=== PATIENT | female | born 1995 | race Caucasian/White ===

== ENCOUNTER 2017-05-31 14:45 | Emergency (ER) | payer OTHER ==
[2017-05-31 14:56] VITALS: BP 101/66
[2017-05-31] MEDS ORDERED: Sulfamethox/Trimethoprim DS 800/160* TAB PO ONE (16:37)
--- NOTE | 2017-05-31 16:37 | ED ---
Skin Complaint - HPI Summary HPI Summary: 22 female presents the ED with complaints of pain in left arm and left collarbone. States she gets his pain went she begins to have an infection at surgical site. 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 Had surgery on April 01 at [facility] in [place]. Was given vancomycin for 32 days. Later had pain in signs of infection and was placed on Bactrim. Had a positive MRSA culture. States 2 days ago pain returned and she is afraid that the infection is beginning again. Denies any drainage redness swelling or other signs infection. Has been applying appropriate dressings and packing as instructed by her surgeon. Denies any fever chills nausea or vomiting. Has not been on any antibiotics for the past 3 weeks. Movement of the left arm makes pain worse. Denies any other complaints or past history. She is afraid she has another MRSA infection as previous ones began with pain as well. - History of Current Complaint Chief Complaint: EDLacSutureRecheck Time Seen by Provider: 05/31/17 16:05 Stated Complaint: MRSA INFECTION FROM PRIOR SURGERY Hx Obtained From: Patient Onset/Duration: Started Days Ago, Still Present Skin Exposure Onset/Duration: Days Ago Timing: Constant Onset Severity: Mild Current Severity: Moderate Pain Intensity: 7 Pain Scale Used: 0-10 Numeric Skin Location: Discrete - Left midclavicle area Character: Pain Aggravating Symptom(s): Other: - Movement Alleviating Symptom(s): Nothing Associated Signs & Symptoms: Nausea - Allergy/Home Medications Allergies/Adverse Reactions: Allergies Allergy/AdvReac Type Severity Reaction Status Date / Time No Known Allergies Allergy Verified 05/31/17 14:56 PMH/Surg Hx/FS Hx/Imm Hx Endocrine/Hematology History: Denies: Hx Anticoagulant Therapy, Hx Diabetes Cardiovascular History: Denies: Hx Hypertension Musculoskeletal History: Reports: Other Musculoskeletal History - osteomyelitis - Surgical History Surgery Procedure, Year, and Place: April 01 osteomyelitis at [facility] - Immunization History Date of Tetanus Vaccine: up-to-date Immunizations Up to Date: Yes Infectious Disease History: Yes Infectious Disease History: Reports: Hx of Known/Suspected MRSA Denies: Traveled Outside the [place] in Last 30 Days - Family History Known Family History: Positive: None - Social History Hx Substance Use: Yes - 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 Smoking Status (MU): Unknown if Ever Smoked Review of Systems Constitutional: Negative Cardiovascular: Negative Respiratory: Negative Gastrointestinal: Negative Positive: Arthralgia, Myalgia - left arm Positive: Other - surgical site left clavicle Neurological: Negative All Other Systems Reviewed And Are Negative: Yes Physical Exam Triage Information Reviewed: Yes Vital Signs On Initial Exam: Initial Vitals Temp Pulse Resp BP Pulse Ox 97.5 F 80 16 101/66 98 05/31/17 14:50 05/31/17 14:50 05/31/17 14:50 05/31/17 14:50 05/31/17 14:50 Vital Signs Reviewed: Yes Appearance: Positive: Well-Appearing, No Pain Distress, Well-Nourished Skin: Positive: Warm, Skin Color Reflects Adequate Perfusion, Dry, Erythema @ - Minimal to mild erythema surrounding surgical site of left mid clavicle area no abscess appreciated. Gaping wound from surgical site. Gel Packing present. No obvious discharge or significant swelling. No surrounding cellulitis or red streaking. Not warm to touch. Rest of exam normal. Negative: Cold, Numb, Cyanosis @, Pale Head/Face: Positive: Normal Head/Face Inspection Neck: Positive: Supple, Nontender, No Lymphadenopathy Respiratory/Lung Sounds: Positive: Clear to Auscultation, Breath Sounds Present. Negative: Rales, Rhonchi, Wheezes Cardiovascular: Positive: Normal, RRR, Pulses are Symmetrical in both Upper and Lower Extremities. Negative: Murmur, Rub Bowel Sounds: Positive: Present Musculoskeletal: Positive: Normal, Strength/ROM Intact, Pain @ - With movement of left arm and neck per patient. Negative: Limited @, Interruption @, Abnormal @, Edema Left, Edema Right Neurological: Positive: Normal, Sensory/Motor Intact, Alert, Oriented to Person Place, Time Diagnostics - Vital Signs Vital Signs Temp Pulse Resp BP Pulse Ox 05/31/17 14:50 97.5 F 80 16 101/66 98 - Laboratory Lab Statement: Any lab studies that have been ordered have been reviewed, and results considered in the medical decision making process. Course/Dx - Course Course Of Treatment: Wound culture obtained sent to lab pending results. Due to patient's significant history will start on Bactrim. Has had palpitations with surgery. However no significant findings for infection/concern for osteomyelitis or abscess at this time. Normal vital signs. Told to call surgeon to inform of symptoms. Patient has not seen surgeon since surgery on April 01. Aware worsening signs and symptoms to watch out for. Encouraged use of hematocrit she was educated constant antibiotic use is not recommended. Increase fluid intake. Ibuprofen and Tylenol for pain. Continue dressing as per surgeon. No other concerns or complaints at this time. Follow-up with PCP for recheck. - Differential Diagnoses - Skin Complaint Differential Diagnoses: Abscess, Cellulitis, MRSA, Other - Surgical site wound, surgical site competitions - Diagnoses Provider Diagnoses: Cellulitis Discharge - Sign-Out/Discharge Documenting (check all that apply): Discharge - Discharge Plan Condition: Good Disposition: HOME Prescriptions: Sulfamethox/Trimethoprim DS* [Bactrim DS 800/160 TAB*] 1 tab PO BID #19 tab Patient Education Materials: Cellulitis (ED) Referrals: Jacques Mejía MD [Medical Doctor] - Non Staff,Doctor [Primary Care Provider] - Additional Instructions: Take prescribed medication as directed until entire dose is finished. Recommend taking probiotic pill and eating Maori yogurt in between doses has been discussed. Increase fluid intake and keep wound clean and dry as you have been. Recommend calling surgeon if any complications. Any new or worsening symptoms please seek medical attention promptly as we discussed. Ibuprofen or Tylenol for pain. - Billing Disposition and Condition Condition: GOOD Disposition: HOME
--- NOTE | 2017-06-03 06:49 | PN ---
Progress Note - Progress Note Date of Service: 06/03/17 Note: Patient's wound culture grew MRSA. Patient placed on Bactrim. Final culture shows sensitive to. No further action required.
== END 2017-05-31 16:55 | disposition home or self-care (01) ==
LOC: ED 14:45
DX: L03.114 Cellulitis of left upper limb (principal); B95.62 Methicillin resistant Staphylococcus aureus infection as the cause of diseases classified elsewhere; Z16.11 Resistance to penicillins; Z16.29 Resistance to other single specified antibiotic; R11.0 Nausea
CPT/HCPCS: 87070; 87077; 87186; 87205; 87640; 87641; 99282; A9270-GY

== ENCOUNTER 2017-06-20 11:15 | Emergency (ER) | payer OTHER ==
[2017-06-20 13:35] LABS: Urine Appearance Cloudy; Urine Blood Negative (Negative); Urine Color Yellow; Urine Ketones Negative (Negative); Urine Protein Negative (Negative); Urine Specific Gravity 1.024 (1.010-1.030); Urine Urobilinogen Positive (Negative)
[2017-06-20 14:40] LABS: EGFR Non-African American 95.2 (>60)
[2017-06-20] MEDS ORDERED: Ondansetron ODT TAB* 4 MG PO ONE (14:52)
--- NOTE | 2017-06-20 15:46 | ED ---
GI/ HPI - HPI Summary HPI Summary: 22F presents with n/v/d for past 5 days. She admits to fatigue. She denies any chest pain, SOB, or cough. She admits to sore throat. She states that she has not been able to keep food down. She admit to dizziness and a mild headache. she also has occasionally LUQ pain. no blood in stool. She denies any dysuria, urgency, frequency, hematuria. She denies any sinus congestion. She has been taking Tylenol and ibuprofen. She denies any known fevers. She states she has been able to hear liquids down but still feels a little dehydrated. She states she feels lightheaded. - History of Current Complaint Chief Complaint: EDNauseaVomitDiarrh Time Seen by Provider: 06/20/17 15:17 Stated Complaint: ILLNESS Pain Intensity: 7 - Allergy/Home Medications Allergies/Adverse Reactions: Allergies Allergy/AdvReac Type Severity Reaction Status Date / Time No Known Allergies Allergy Verified 06/20/17 11:22 Home Medications: Home Medications Amphetamine MIXED SALTS TAB* [Adderall TAB*] 20 mg PO DAILY 06/20/17 [History Confirmed 06/20/17] Buprenorphine/Naloxone SL TAB* [Suboxone 8-2 mg SL TAB*] 2 tab SL DAILY [History Confirmed 06/20/17] Magnesium CITRATE* [Citrate of Magnesia*] 150 ml PO DAILY PRN 06/20/17 [History Confirmed 06/20/17] Nicotine GUM* 2 mg PO Q2H PRN 06/20/17 [History Confirmed 06/20/17] busPIRone TAB* [Buspar TAB*] 5 mg PO TID 06/20/17 [History Confirmed 06/20/17] cloNIDine TAB* [Catapres 0.1 MG TAB*] 0.1 mg PO BID PRN 06/20/17 [History Confirmed 06/20/17] hydrOXYzine HCL TAB* [Atarax TAB 50 MG *] 100 mg PO BID 06/20/17 [History Confirmed 06/20/17] PMH/Surg Hx/FS Hx/Imm Hx Endocrine/Hematology History: Denies: Hx Anticoagulant Therapy, Hx Diabetes Cardiovascular History: Denies: Hx Hypertension Musculoskeletal History: Reports: Other Musculoskeletal History - osteomyelitis - Surgical History Surgery Procedure, Year, and Place: April 01 osteomyelitis at [facility] - Immunization History Date of Tetanus Vaccine: up-to-date Infectious Disease History: No Infectious Disease History: Reports: Hx of Known/Suspected MRSA Denies: Traveled Outside the [place] in Last 30 Days - Family History Known Family History: Positive: None - Social History Alcohol Use: None Alcohol Amount: daily, but sober since 04/30/17 Hx Substance Use: Yes - 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 Substance Use Type: Reports: Cocaine, Heroin Substance Use Comment - Amount & Last Used: sober since 04/30/2017 Smoking Status (MU): Light Every Day Tobacco Smoker Review of Systems Negative: Fever Positive: Sore Throat Negative: Chest Pain Negative: Shortness Of Breath Positive: Abdominal Pain, Vomiting, Diarrhea, Nausea All Other Systems Reviewed And Are Negative: Yes Physical Exam Triage Information Reviewed: Yes Vital Signs On Initial Exam: Initial Vitals Temp Pulse Resp BP Pulse Ox 97.3 F 92 15 126/56 99 06/20/17 11:19 06/20/17 11:19 06/20/17 11:19 06/20/17 11:19 06/20/17 11:19 Vital Signs Reviewed: Yes Appearance: Positive: Well-Appearing Skin: Positive: Warm, Dry Head/Face: Positive: Normal Head/Face Inspection Eyes: Positive: Normal, EOMI, ROULA, Conjunctiva Clear ENT: Positive: Normal ENT inspection, Pharynx normal, TMs normal Respiratory/Lung Sounds: Positive: Clear to Auscultation, Breath Sounds Present Cardiovascular: Positive: Normal, RRR Abdomen Description: Positive: Soft, Other: - mild diffuse abdominal tenderness Bowel Sounds: Positive: Present Musculoskeletal: Positive: Normal Neurological: Positive: Normal Psychiatric: Positive: Normal Diagnostics - Vital Signs Vital Signs Temp Pulse Resp BP Pulse Ox 06/20/17 15:20 83 116/53 98 06/20/17 14:32 98.0 F 85 16 104/51 100 06/20/17 12:37 97.9 F 75 16 97/53 98 06/20/17 11:19 97.3 F 92 15 126/56 99 - Laboratory Lab Results: Lab Results 06/20/17 06/20/17 Range/Units 13:15 13:51 Sodium 139 (139-145) mmol/L Potassium TNP Chloride 103 (101-111) mmol/L Carbon Dioxide 26 (22-32) mmol/L Anion Gap 10 (2-11) mmol/L BUN 9 (6-24) mg/dL Creatinine 0.76 (0.51-0.95) mg/dL Est GFR ( Amer) 122.4 (>60) Est GFR (Non-Af Amer) 95.2 (>60) BUN/Creatinine Ratio 11.8 (8-20) Glucose 86 (70-100) mg/dL Calcium 8.6 (8.6-10.3) mg/dL Total Bilirubin 0.20 (0.2-1.0) mg/dL AST TNP ALT 43 (7-52) U/L Alkaline Phosphatase 70 (34-104) U/L C-Reactive Protein Pending Total Protein 7.0 (6.4-8.9) g/dL Albumin 3.6 (3.2-5.2) g/dL Globulin 3.4 (2-4) g/dL Albumin/Globulin Ratio 1.1 (1-3) Lipase 20 (11.0-82.0) U/L Beta HCG, Quant < 0.60 mIU/mL Urine Color Yellow Urine Appearance Cloudy Urine pH 6.0 (5-9) Ur Specific Crystal 1.024 (1.010-1.030) Urine Protein Negative (Negative) Urine Ketones Negative (Negative) Urine Blood Negative (Negative) Urine Nitrate Negative (Negative) Urine Bilirubin Negative (Negative) Urine Urobilinogen Positive A (Negative) Ur Leukocyte Esterase Negative (Negative) Urine Glucose Negative (Negative) Urine Ascorbic Acid * A (Negative) Result Diagrams: 06/20/17 16:00 06/20/17 16:00 Lab Statement: Any lab studies that have been ordered have been reviewed, and results considered in the medical decision making process. Re-Evaluation - Re-Evaluation First Eval Re-Evaluation Time: 19:28 Change: Improved Comment: feeling better after fluids GIGU Course/Dx - Course Course Of Treatment: 22F presents with n/v/d for past 5 days. She admits to fatigue. She denies any chest pain, SOB, or cough. She admits to sore throat. She states that she has not been able to keep food down. She admit to dizziness and a mild headache. she also has occasionally LUQ pain. no blood in stool. She denies any dysuria, urgency, frequency, hematuria. She denies any sinus congestion. She has been taking Tylenol and ibuprofen. She denies any known fevers. She states she has been able to hear liquids down but still feels a little dehydrated. She states she feels lightheaded. On exam mild diffuse abdominal tenderness. Lungs clear to auscultation. Labs within normal limits. Gave 2 L of fluid and patient feeling better. Will discharge with nausea medication. Patient understands agrees with plan. - Diagnoses Differential Diagnoses - Female: Gastroenteritis (Viral), Gastroenteritis ( Bacterial), Urinary Tract Infection Provider Diagnoses: Gastroenteritis Discharge - Sign-Out/Discharge Documenting (check all that apply): Discharge/Admit/Transfer - Discharge Plan Condition: Good Disposition: HOME Prescriptions: Ondansetron TAB* [Zofran 4 MG Tab*] 4 mg PO Q6H PRN #18 tab PRN Reason: Nausea Patient Education Materials: Gastroenteritis (ED) Forms: *Gen. Provider Communication Referrals: Non Staff,Doctor [Primary Care Provider] - Additional Instructions: Can take Zofran every 6 hours as needed for nausea Drink small amounts of fluid as tolerated When able to eat follow BRAT diet: Bananas, rice, applesauce, toast Take ibuprofen or Tylenol for pain as needed every 6 hours Follow up with primary within 5 days Return to ED if develop fever that does not respond to Tylenol or ibuprofen, severe abdominal pain, or any new or worsening symptoms - Billing Disposition and Condition Condition: GOOD Disposition: HOME
[2017-06-20 16:13] LABS: ABS Basophils 0 10^3/ul (0-0.2); ABS Eosinophils 0.4 10^3/ul (0-0.6); ABS Lymphocytes 1.6 10^3/ul (1.0-4.8); ABS Monocytes 0.3 10^3/ul (0-0.8); ABS Neutrophils 2.9 10^3/ul (1.5-7.7); ABS Nucleated RBC 0 10^3/ul; Eosinophil % 7.7 % (0-6); Hematocrit 35 % (35-47); Hemoglobin 11.6 g/dl (12.0-16.0); Lymphocyte % 30.9 % (25-47); Mean Corpuscular HGB Conc 34 g/dl (31-36); Mean Corpuscular Hemoglobin 29 pg (27-31); Mean Corpuscular Volume 85 fL (80-97); Mean Platelet Volume 8.3 um3 (7.4-10.4); Nucleated Red Blood Cells % 0; Platelet Count 143 10^3/ul (150-450); Red Blood Count 4.06 10^6/ul (4.0-5.4); Red Cell Distribution Width 16 % (10.5-15); White Blood Count 5.3 10^3/ul (3.5-10.8)
[2017-06-20] MEDS: NS 0.9% 1000 ML* 2,000 ML IV ONE (16:29)
[2017-06-20] MEDS ORDERED: O ndansetron ODT 4MG 2TAB PRPK 4 MG PAK PO ONE (18:46)
[2017-06-20 19:18] VITALS: BP 118/54
== END 2017-06-20 19:26 | disposition home or self-care (01) ==
LOC: ED 11:15
DX: K52.9 Noninfective gastroenteritis and colitis, unspecified (principal); F17.200 Nicotine dependence, unspecified, uncomplicated
CPT/HCPCS: 36415; 80053; 81003; 83690; 84702; 85025; 86140; 86308; 96360; 96361; 99283; A9270-GY

== ENCOUNTER 2017-07-05 13:28 | Emergency (ER) | payer OTHER ==
[2017-07-05 15:18] VITALS: BP 120/67
--- NOTE | 2017-07-05 15:41 | ED ---
All Perez Gabriel, scribed for Víctor Apple MD on 07/05/17 at 1420 . Skin Complaint - HPI Summary HPI Summary: This patient is a 22 year old F presenting to [facility] with a chief complaint of lumps on her pelvic bone and in her arm pits. Pt currently has a MRSA infection on her neck from using IV drugs and is seeing the wound clinic for it. She is currently on two oral antibiotics. She is a patient at [facility]. She is concerned that her MRSA has spread, she is a chronic skin case picker. Patient reports migraines, diaphoresis, diarrhea, and general malaise. LNMP 3 months ago. - History of Current Complaint Chief Complaint: EDRashSkinAbscess Time Seen by Provider: 07/05/17 14:12 Stated Complaint: RASH Hx Obtained From: Patient Onset/Duration: Still Present Timing: Constant Onset Severity: Mild Current Severity: Mild Pain Intensity: 4 Pain Scale Used: 0-10 Numeric Skin Location: Other: - armpit Associated Signs & Symptoms: Negative - fever - Allergy/Home Medications Allergies/Adverse Reactions: Allergies Allergy/AdvReac Type Severity Reaction Status Date / Time No Known Allergies Allergy Verified 06/20/17 11:22 PMH/Surg Hx/FS Hx/Imm Hx Endocrine/Hematology History: Denies: Hx Anticoagulant Therapy, Hx Diabetes Cardiovascular History: Denies: Hx Hypertension Respiratory History: Denies: Hx Chronic Obstructive Pulmonary Disease (COPD) GI History: Denies: Hx Gastroesophageal Reflux Disease, Hx Gastrointestinal Bleed Musculoskeletal History: Reports: Other Musculoskeletal History - osteomyelitis Neurological History: Reports: Hx Migraine Psychiatric History: Reports: Hx Substance Abuse - Surgical History Surgery Procedure, Year, and Place: April 01 osteomyelitis at [facility] - Immunization History Date of Tetanus Vaccine: up-to-date Infectious Disease History: No Infectious Disease History: Reports: Hx of Known/Suspected MRSA Denies: Traveled Outside the [place] in Last 30 Days - Family History Known Family History: Negative: Respiratory Disease, Seizure Disorder - Social History Alcohol Use: None Alcohol Amount: daily, but sober since 04/30/17 Hx Substance Use: Yes - 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 Substance Use Type: Reports: Cocaine, Heroin Substance Use Comment - Amount & Last Used: sober since 04/30/2017 Smoking Status (MU): Light Every Day Tobacco Smoker Review of Systems Positive: Skin Diaphoresis, Other - general malaise Positive: Diarrhea Positive: Other - lumps Positive: Headache All Other Systems Reviewed And Are Negative: Yes Physical Exam - Summary Physical Exam Summary: Appearance: Well appearing, no pain distress Skin: warm, dry, reflects adequate perfusion, raised follicle area in the right axial, solitary lymph node that is large in the left axial, Head/face: normal Eyes: EOMI, ROULA ENT: normal Neck: supple, non-tender Respiratory: CTA, breath sounds present Cardiovascular: RRR, pulses symmetrical Abdomen: non-tender, soft Bowel Sounds: present Musculoskeletal: normal, strength/ROM intact Neuro: normal, sensory motor intact, A&Ox3 Bed sides US: 2x1 cm induration in the follicular area of the pubic region there is mild stranding and edema but no drainable abscess Triage Information Reviewed: Yes Vital Signs On Initial Exam: Initial Vitals Temp Pulse Resp BP Pulse Ox 96 F 92 16 94/67 95 07/05/17 13:28 07/05/17 13:28 07/05/17 13:28 07/05/17 13:28 07/05/17 13:28 Vital Signs Reviewed: Yes Diagnostics - Vital Signs Vital Signs Temp Pulse Resp BP Pulse Ox 07/05/17 13:28 96 F 92 16 94/67 95 - Laboratory Lab Statement: Any lab studies that have been ordered have been reviewed, and results considered in the medical decision making process. Course/Dx - Course Course Of Treatment: Patient with a myriad of complaints today. Most of which are not new. She has areas of folliculitis and lymphadenopathy in her axillas. She is on antibiotics for MRSA causing abscess in her left neck. She also excoriates and chronically picks areas. I examined with bedside ultrasound and area of induration in her suprapubic area. There is no drainable abscess there. It looks like phlegmon. I provided her with chlorhexidine soap to use at home as well as promethazine for her intermittent headaches/nausea, Lactobacillus probiotic. She also has menstrual irregularity with a recent negative test. I will refer her to [facility]. - Diagnoses Provider Diagnoses: MRSA (methicillin resistant Staphylococcus aureus), Folliculitis, Irregular menses Discharge - Sign-Out/Discharge Documenting (check all that apply): Discharge/Admit/Transfer - Discharge Plan Condition: Stable Disposition: HOME Prescriptions: Lactobacillus Acidophilus [Acidophilus Lactobacilli] 1 each PO BID #30 capsule Promethazine TAB* [Phenergan TAB*] 25 mg PO Q6H PRN #20 tab PRN Reason: headache/nausea Patient Education Materials: Folliculitis (ED) Referrals: Joao Diaz MD [Medical Doctor] - Kameron King [Primary Care Provider] - Additional Instructions: Used this soap provided to clean your skin today and then again in 1 week. Continue to eat the bacteria containing yogurt. Return with heavy diarrhea, worse, new symptoms or other concerns. Call the [facility] to follow-up here menstrual irregularity today. - Billing Disposition and Condition Condition: STABLE Disposition: HOME The documentation as recorded by the All ling Gabriel accurately reflects the service I personally performed and the decisions made by , Víctor Apple MD.
== END 2017-07-05 15:16 | disposition home or self-care (01) ==
LOC: ED 13:28
DX: L08.9 Local infection of the skin and subcutaneous tissue, unspecified (principal); B95.62 Methicillin resistant Staphylococcus aureus infection as the cause of diseases classified elsewhere; L73.9 Follicular disorder, unspecified; N92.6 Irregular menstruation, unspecified; R51 Headache; R11.0 Nausea; F42.4 Excoriation (skin-picking) disorder; F17.200 Nicotine dependence, unspecified, uncomplicated
CPT/HCPCS: 99282